=== PATIENT | male | born 2000 | race Caucasian/White ===

== ENCOUNTER 2024-03-06 16:44 | Emergency (ER) | payer OTHER, SELFPAY ==
[2024-03-06] VITALS (15 sets, daily range): BP systolic 98–124; BP diastolic 62–74; PULSE 83–111; RESP 16–36; TEMP 36.6; O2SAT 96–100; BMI 22.8
--- NOTE | 2024-03-06 17:00 | EKG_ITS ---
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
--- NOTE | 2024-03-06 17:06 | DI.RAD.S_ITS ---
PROCEDURE: XR CHEST 1V INDICATIONS: chest pain TECHNIQUE: One view of the chest was acquired. COMPARISON: None. FINDINGS: Surgical changes and devices: None. Lungs and pleura: Lungs are clear. No pleural effusions or pneumothorax. Mediastinum: Mediastinal contours appear normal. Heart size is normal. Bones and chest wall: No suspicious bony lesions. Overlying soft tissues appear unremarkable. IMPRESSION: No acute cardiopulmonary abnormality is seen. Dictated by: Orville Gordon M.D. on 03/06/2024 at 17:45 Approved by: Orville Gordon M.D. on 03/06/2024 at 17:46
[2024-03-06 17:46] LABS: Add Manual Diff / Slide Review NO; Basophils Absolute Auto 0 /uL (0-100); Basophils Percent Auto 0.2 % (0-2); Eosinophils Absolute Auto 0 /uL (0-450); Eosinophils Percent Auto 0.3 % (2-4); Hematocrit 46.9 % (41-53); Hemoglobin 16.5 g/dL (13.5-17.5); Lymphocytes Absolute Auto 900 /uL (1100-4500); Mean Corpuscular HGB Conc 35.2 % (30-36); Mean Corpuscular Hemoglobin 30.6 PG (26-34); Mean Corpuscular Volume 86.9 fL (80-100); Monocytes Absolute Auto 500 /uL (0-900); Monocytes Percent Auto 4.5 % (3-14); Neutrophils Absolute Auto 8800 /uL (1500-7000); Platelet Count 194 X10^3/uL (150-400); Red Blood Cell Count 5.39 X10^6/uL (4.5-5.9); Red Cell Distribution Width 13.5 % (11.6-14.8); White Blood Cell Count 10.2 X10^3/uL (4.5-11.0)
[2024-03-06 17:51] LABS: Prothrombin Time 11.6 SECONDS (9.4-12.5)
[2024-03-06 17:54] LABS: PTT Partial Thromboplastin Tim 31 SECONDS (25.1-36.5)
--- NOTE | 2024-03-06 17:59 | PC.NURSE ---
Pt reports feeling anxious and appears very anxious, has chills and states cannot get warm despite blankets. temp 98.4 oral. reports palpitations however denies chest pain. having some carpopedal spasms and coached to slow breathing. appears pale. lips are very chapped and appears overall dry. states he feels like he wants to pass out. EKG obtained. IV in place and labs sent. swabbed for flu/covid/rsv. denies sick contacts.
[2024-03-06 18:04] LABS: Alanine Aminotransferase 37 IU/L (<50); Albumin 4.5 g/dL (3.5-5.0); Albumin Globulin Ratio 1.5 (1.0-2.8); Alkaline Phosphatase 111 U/L (38-126); Aspartate Aminotransferase 32 IU/L (17-59); Bilirubin Total 1.7 mg/dL (0.2-1.3); Blood Urea Nitrogen 15 mg/dL (9-20); Calcium 9.6 mg/dL (8.4-10.2); Carbon Dioxide 20 mmol/L (22-32); Chloride 107 mmol/L (98-107); Creatine Kinase 72 U/L (55-170); Estimated Glomerular Filt Rate > 60 mL/min (>60); Glucose 106 mg/dL (70-100); HEMOLYSIS < 15 (0-50); Lipase 40 U/L (23-300); Magnesium 1.5 mg/dL (1.6-2.3); Potassium 4.2 mmol/L (3.4-5.1); Sodium 135 mmol/L (137-145); Total Protein 7.5 g/dL (6.3-8.2)
--- NOTE | 2024-03-06 18:07 | ED_ITS ---
HPI - Arrhythmia/Palpitations General Chief Complaint: Arrhythmia/Palpitations Stated Complaint: vomiting, racing heart. Time Seen by Provider: 03/06/24 18:06 Source: patient Mode of arrival: Ambulatory History of Present Illness HPI narrative: 23-year-old male complains of nausea with single episode nonbloody emesis 3:30 p.m. today, generalized weakness, sensation of heartbeat racing, no black or red stools, no fevers or chills. He says he coughs all the time, no change in cough, denies shortness of breath or chest pain. He denies alcohol use, drug use. He said he ?ate a lot last night? otherwise nothing new that he can recall. No other persons close contacts with similar GI symptoms. He has sensation that his heart rate had been going fast. No sensation of passing out or nearly passing out. No focal weakness to face arm or leg. No numbness to face arm or leg. No injury, trauma, new activities. No change in medications, no stopping of any chronic medications. No changes in diet or [id number] substances. Related Data Allergies Allergy/AdvReac Type Severity Reaction Status Date / Time No Known Drug Allergies Allergy Verified 03/06/24 16:54 Review of Systems Review of Systems Narrative: see HPI Patient History Social History Smoking Status: Unknown if ever smoked Smoking Status: Unknown if ever smoked Exam Narrative Exam Narrative: GENERAL: Well-developed patient, in mild distress. HEAD: Atraumatic. Normocephalic. EYES: Pupils equal round and reactive. Extraocular motions intact. No scleral icterus. No injection or drainage. ENT: Nose without bleeding, purulent drainage. Throat without erythema, tonsillar hypertrophy or exudate. Airway patent. NECK: Trachea midline. Non tender CARDIOVASCULAR: Regular rate and rhythm without murmurs, gallops, or rubs. RESPIRATORY: Clear to auscultation. Breath sounds equal bilaterally. No wheezes, rales, or rhonchi. GASTROINTESTINAL: Abdomen soft, non-tender, nondistended. EXTREMITIES: No edema or joint tenderness. BACK: Nontender without deformity or crepitance. No flank tenderness. NEURO: AOx3. Motor functions grossly nonfocal SKIN: No rash or erythema of visible areas Initial Vital Signs Initial Vital Signs: Vital Signs Temperature 97.8 F 03/06/24 16:52 Pulse Rate 104 H 03/06/24 16:52 Respiratory Rate 17 03/06/24 16:52 Blood Pressure 119/74 03/06/24 16:52 Pulse Oximetry 100 03/06/24 16:52 Oxygen Delivery Method Room Air 03/06/24 16:52 Course Orders Ordered: ED Orders 03/06/24 20:55 Troponin I Stat 03/06/24 21:45 Urinalysis and Microscopic Stat urine tox [Urine Drug Screen, Rapid] Stat Discontinued Medications Sodium Chloride (Normal Saline 0.9%) 1,000 mls @ 1,000 mls/hr IV BOLUS ONE Stop: 03/06/24 19:06 Last Infusion: 03/06/24 18:42 Dose: Infused Documented By: Admin: 03/06/24 18:10 Dose: 1,000 mls/hr Documented By: JAIME Magnesium Oxide (Magnesium Oxide 400 Mg Tablet) 400 mg PO DAILY LAYA Magnesium Oxide (Magnesium Oxide 400 Mg Tablet) 400 mg PO NOW ONE Stop: 03/06/24 21:48 Last Admin: 03/06/24 21:54 Dose: 400 mg Documented By: PHUONG Ondansetron HCl (Ondansetron 4 Mg/2 Ml Inj) 4 mg IV NOW PRN PRN Reason: Nausea And Vomiting Ondansetron HCl (Ondansetron 4 Mg Odt) 4 mg SL NOW PRN PRN Reason: Nausea And Vomiting Ondansetron HCl (Ondansetron 4 Mg/2 Ml Inj) 4 mg IV NOW ONE Stop: 03/06/24 18:24 Last Admin: 03/06/24 18:38 Dose: 4 mg Documented By: JAIME Vital Signs Vital signs: Vital Signs - 8 hr 03/06/24 20:00 03/06/24 20:26 03/06/24 20:26 Pulse Rate 94 H 99 H Respiratory Rate 25 H Blood Pressure 118/66 Pulse Oximetry 96 97 Oxygen Delivery Method 03/06/24 20:30 03/06/24 21:00 03/06/24 21:52 Pulse Rate 93 H 94 H Respiratory Rate 18 Blood Pressure Pulse Oximetry 98 98 100 Oxygen Delivery Method 03/06/24 21:53 03/06/24 21:53 Pulse Rate 111 H Respiratory Rate 17 Blood Pressure 123/70 Pulse Oximetry 100 Oxygen Delivery Method Room Air MDM - Arrhythmia/Palpitations Lab Data Attestation: I reviewed the patient's lab results. Lab results narrative: White blood cell count 29807, hemoglobin 16.5, platelets adequate. Basic metabolic panel unremarkable, glucose 106 noted. Liver functions normal, lipase normal. Urinalysis pending. 03/06/24 17:37 03/06/24 17:37 Labs: Lab Results 03/06/24 03/06/24 03/06/24 Range/Units 17:07 17:37 20:55 WBC 10.2 (4.5-11.0) X10^3/uL RBC 5.39 (4.5-5.9) X10^6/uL Hgb 16.5 (13.5-17.5) g/dL Hct 46.9 (41-53) % MCV 86.9 (80-100) fL MCH 30.6 (26-34) PG MCHC 35.2 (30-36) % RDW 13.5 (11.6-14.8) % Plt Count 194 (150-400) X10^3/uL Neut % (Auto) 86.0 H (50-75) % Lymph % (Auto) 9.0 L (25-40) % [place] % (Auto) 4.5 (3-14) % Eos % (Auto) 0.3 L (2-4) % Baso % (Auto) 0.2 (0-2) % Neut # (Auto) 8800 H (6527-3976) /uL Lymph # (Auto) 900 L (8927-2736) /uL [place] # (Auto) 500 (0-900) /uL Eos # (Auto) 0 (0-450) /uL Baso # (Auto) 0 (0-100) /uL PT 11.6 (9.4-12.5) SECONDS INR 1.0 (0.9-1.3) APTT 31 (25.1-36.5) SECONDS Sodium 135 L (137-145) mmol/L Potassium 4.2 (3.4-5.1) mmol/L Chloride 107 (98-107) mmol/L Carbon Dioxide 20 L (22-32) mmol/L BUN 15 (9-20) mg/dL Creatinine 0.94 (0.66-1.25) mg/dL Estimated GFR > 60 (>60) mL/min BUN/Creatinine Ratio 16.0 (6-22) Glucose 106 H (70-100) mg/dL Calcium 9.6 (8.4-10.2) mg/dL Magnesium 1.5 L (1.6-2.3) mg/dL Total Bilirubin 1.7 H (0.2-1.3) mg/dL AST 32 (17-59) IU/L ALT 37 (<50) IU/L Alkaline Phosphatase 111 (38-126) U/L Total Creatine Kinase 72 (55-170) U/L Troponin I < 0.012 < 0.012 (0.01-0.034) ng/mL NT-Pro-B Natriuret Pep 43 (<125) pg/mL Total Protein 7.5 (6.3-8.2) g/dL Albumin 4.5 (3.5-5.0) g/dL Globulin 3.0 (1.7-4.1) g/dL Albumin/Globulin Ratio 1.5 (1.0-2.8) Lipase 40 (23-300) U/L Urine Color Urine Appearance Urine pH (4.5-8.0) Ur Specific [place] (1.000-1.035) Urine Protein (Negative) Urine Glucose (UA) (Negative) g/dL Urine Ketones (NEGATIVE) Urine Occult Blood (Negative) Urine Nitrate (Negative) Urine Bilirubin (NEGATIVE) Urine Urobilinogen (0.2) E.U./dL Ur Leukocyte Esterase (NEGATIVE) Urine RBC (0-5/HPF) Urine WBC (0-5/HPF) Ur Squamous Epith Cells (0-5/HPF) Urine Bacteria (None) Ur Culture Indicated? Vol Urine Centrifuged U Opiates 300ng/mL cut (Negative) Ur Oxycodone Screen (Negative) Urine Methadone Screen (Negative) Ur Barbiturates Screen (Negative) U Tricyclic Antidepress (Negative) Ur Phencyclidine Scrn (Negative) Ur Amphetamines Screen (Negative) U Methamphetamines Scrn (Negative) Ur MDMA Scrn (Ecstasy) (Negative) U Benzodiazepines Scrn (Negative) Urine Cocaine Screen (Negative) U Marijuana (THC) Screen (Negative) Urine Specific [place] (Normal) Ethyl Alcohol < 10 ( - 10) mg/dL Ur Creatinine (Normal) SARS-CoV-2 (PCR) Negative (Negative) Influenza A (RT-PCR) Flu a negative (NEGATIVE) Influenza B (RT-PCR) Flu b negative (NEGATIVE) RSV (PCR) Negative (Negative) 03/06/24 03/06/24 Range/Units 21:45 21:45 WBC (4.5-11.0) X10^3/uL RBC (4.5-5.9) X10^6/uL Hgb (13.5-17.5) g/dL Hct (41-53) % MCV (80-100) fL MCH (26-34) PG MCHC (30-36) % RDW (11.6-14.8) % Plt Count (150-400) X10^3/uL Neut % (Auto) (50-75) % Lymph % (Auto) (25-40) % [place] % (Auto) (3-14) % Eos % (Auto) (2-4) % Baso % (Auto) (0-2) % Neut # (Auto) (4900-0564) /uL Lymph # (Auto) (4583-6858) /uL [place] # (Auto) (0-900) /uL Eos # (Auto) (0-450) /uL Baso # (Auto) (0-100) /uL PT (9.4-12.5) SECONDS INR (0.9-1.3) APTT (25.1-36.5) SECONDS Sodium (137-145) mmol/L Potassium (3.4-5.1) mmol/L Chloride (98-107) mmol/L Carbon Dioxide (22-32) mmol/L BUN (9-20) mg/dL Creatinine (0.66-1.25) mg/dL Estimated GFR (>60) mL/min BUN/Creatinine Ratio (6-22) Glucose (70-100) mg/dL Calcium (8.4-10.2) mg/dL Magnesium (1.6-2.3) mg/dL Total Bilirubin (0.2-1.3) mg/dL AST (17-59) IU/L ALT (<50) IU/L Alkaline Phosphatase (38-126) U/L Total Creatine Kinase (55-170) U/L Troponin I (0.01-0.034) ng/mL NT-Pro-B Natriuret Pep (<125) pg/mL Total Protein (6.3-8.2) g/dL Albumin (3.5-5.0) g/dL Globulin (1.7-4.1) g/dL Albumin/Globulin Ratio (1.0-2.8) Lipase (23-300) U/L Urine Color Yellow Urine Appearance Clear Urine pH 6.0 Normal (4.5-8.0) Ur Specific [place] 1.015 (1.000-1.035) Urine Protein Negative (Negative) Urine Glucose (UA) Negative (Negative) g/dL Urine Ketones 1+ H (NEGATIVE) Urine Occult Blood Negative (Negative) Urine Nitrate Negative (Negative) Urine Bilirubin Negative (NEGATIVE) Urine Urobilinogen 0.2 (0.2) E.U./dL Ur Leukocyte Esterase Negative (NEGATIVE) Urine RBC None seen (0-5/HPF) Urine WBC 0-1/hpf (0-5/HPF) Ur Squamous Epith Cells 0-1 /hpf (0-5/HPF) Urine Bacteria None seen (None) Ur Culture Indicated? Cult not indicated Vol Urine Centrifuged 10ml (spun) U Opiates 300ng/mL cut Negative (Negative) Ur Oxycodone Screen Negative (Negative) Urine Methadone Screen Negative (Negative) Ur Barbiturates Screen Negative (Negative) U Tricyclic Antidepress Negative (Negative) Ur Phencyclidine Scrn Negative (Negative) Ur Amphetamines Screen Negative (Negative) U Methamphetamines Scrn Negative (Negative) Ur MDMA Scrn (Ecstasy) Negative (Negative) U Benzodiazepines Scrn Negative (Negative) Urine Cocaine Screen Negative (Negative) U Marijuana (THC) Screen Negative (Negative) Urine Specific [place] Normal (Normal) Ethyl Alcohol ( - 10) mg/dL Ur Creatinine Normal (Normal) SARS-CoV-2 (PCR) (Negative) Influenza A (RT-PCR) (NEGATIVE) Influenza B (RT-PCR) (NEGATIVE) RSV (PCR) (Negative) Imaging Data Chest x-ray: Radiologist's [employer]resson: [address] [address] XRay Report Signed Patient: Eryn Isbell MR#: [id number] : 2000 Acct:[id number] Age/Sex: 23 / M Date of Service: 03/06/24 Loc: ED Accession Number: [id number] Procedure: XR chest 1V Ordering Provider: Karen Toledo MD PROCEDURE: XR CHEST 1V INDICATIONS: chest pain TECHNIQUE: One view of the chest was acquired. COMPARISON: None. FINDINGS: Surgical changes and devices: None. Lungs and pleura: Lungs are clear. No pleural effusions or pneumothorax. Mediastinum: Mediastinal contours appear normal. Heart size is normal. Bones and chest wall: No suspicious bony lesions. Overlying soft tissues appear unremarkable. IMPRESSION: No acute cardiopulmonary abnormality is seen. Dictated by: Orville Gordon M.D. on 03/06/2024 at 17:45 Approved by: Orville Gordon M.D. on 03/06/2024 at 17:46 ECG Data Attestation: I personally reviewed and interpreted this ECG as follows: Interpretation: Normal sinus rhythm with rate of 90, no obvious ST segment elevation or depression changes. NC 146, QRS 100, QTC 398. MDM Narrative Medical decision making narrative: 23-year-old male with generalized weakness, single episode of emesis earlier today, denies abdominal pain, afebrile, sirs screen negative, unremarkable neuro and physical exam, no respiratory distress. Screening labs sent. EKG shows normal sinus rhythm. IV fluid bolus, IV antiemetic. Reassess symptoms and labs after fluids. Labs unremarkable. Troponin negative. Electrolytes unremarkable. Urine drug screen negative. Symptoms improved, patient able to take oral fluids, ambulation trial well tolerated. Consider cardiac ambulatory monitoring given intermittent tachycardia heart racing like symptoms. Further workup as an outpatient for now, patient discharged home. Discharge Plan Departure Patient Disposition: Home Clinical Impression: Vomiting, Generalized weakness, Palpitation, Hypomagnesemia Activity Restrictions/Additional Instructions: Intermittent heart palpitation heart racing like symptoms, vomiting today unclear cause. Screening x-rays unremarkable. EKG and serial blood tests not suggestive of heart attack at this time. Electrolytes were unremarkable. No significant lab abnormality suggesting significant dehydration. IV antinausea medicine given. IV fluids given. Symptoms better, you were able to take oral fluids and walk around the department without difficulty. Consider further testing as an outpatient for now, that might involved cardiac monitoring in further testing as an outpatient for now. Follow up with your regular doctor, contact your regular doctor tomorrow to arrange further follow up. Contact with local behaviour support teacher on-call also provided, though you might require referral from your primary care doctor. Take antinausea medication home pack medications as needed for further nausea episodes if any. Return earlier to this/nearest emergency department for any change worsening symptoms or any concerns prior Low magnesium incidentally noted on lab testing as well, oral dose repletion given, unclear if this might be related to your fatigue, consider recheck blood magnesium level in follow up. Referrals: Yumiko Booker DO [Physician] - Stand Alone Forms: Patient Portal/API/Survey
[2024-03-06] MEDS: SODIUM CHLORIDE 0.9% 1,000 ML 1000 ML IV (18:10)
[2024-03-06 18:15] LABS: NT-proBNP (BNP-Adult 18+) 43 pg/mL (<125); Troponin I < 0.012 ng/mL (0.01-0.034)
[2024-03-06] MEDS: ONDANSETRON 4 MG/2 ML INJ IV (18:38)
[2024-03-06 18:39] LABS: Influenza A - CEPHEID Flu A NEGATIVE (NEGATIVE); Influenza B - CEPHEID Flu B NEGATIVE (NEGATIVE); Respiratory Syncytial Virus Negative (Negative)
[2024-03-06 18:55] LABS: COVID-19 CEPHEID 4-PLEX PCR Negative (Negative)
[2024-03-06 19:53] LABS: Ethanol (ETOH) < 10 mg/dL
[2024-03-06 21:27] LABS: Troponin I < 0.012 ng/mL (0.01-0.034)
[2024-03-06] MEDS: MAGNESIUM OXIDE 400 MG TABLET PO (21:54)
[2024-03-06 22:09] LABS: Appearance Urine UA CLEAR; Bilirubin Urine UA NEGATIVE (NEGATIVE); Color Urine UA YELLOW; Glucose Urine UA NEGATIVE (Negative); Ketones Urine UA 1+ (NEGATIVE); Leukocyte Esterase Urine UA NEGATIVE (NEGATIVE); Nitrite Urine UA NEGATIVE (Negative); Occult Blood Urine UA NEGATIVE (Negative); Protein Urine UA NEGATIVE (Negative); Specific Gravity Urine UA 1.015 (1.000-1.035); Urobilinogen Urine UA 0.2 E.U./dL (0.2)
[2024-03-06 22:15] LABS: Ur Creatinine Normal (Normal); Ur Specific Gravity Normal (Normal); Urine Amphetamines Negative (Negative); Urine Barbiturates Negative (Negative); Urine Benzodiazepines Negative (Negative); Urine Cocaine Negative (Negative); Urine MDMA Negative (Negative); Urine Methadone Negative (Negative); Urine Methamphetamines Negative (Negative); Urine Opiates Negative (Negative); Urine Oxycodone Negative (Negative); Urine Phencyclidine Negative (Negative); Urine THC Negative (Negative); Urine Tricyclic Antidepressant Negative (Negative); Urine pH Normal (Normal)
[2024-03-06 22:21] LABS: Bacteria Urine None Seen; RBC Urine None Seen (0-5/HPF); Squamous Epithelial Cell Urine 0-1 /HPF (0-5/HPF); Urine Volume 10mL (spun); WBC Urine 0-1/HPF (0-5/HPF)
[2024-03-06 22:22] LABS: Culture Indicated Urine Cult Not Indicated
== END 2024-03-06 22:02 | disposition home or self-care (01) ==
PROVIDERS: Emergency Medicine; Emergency Provider Emergency Medicine
DX: R00.2 Palpitations (principal); E83.42 Hypomagnesemia; R53.1 Weakness; R11.2 Nausea with vomiting, unspecified; R07.9 Chest pain, unspecified
CPT/HCPCS: 0241U; 36415; 71045; 80053; 80305; 80320; 81001; 82550; 83690; 83735; 83880; 84484; 85025; 85610; 85730; 93005; 93010; 96361; 96374; 99284; J2405